=== PATIENT | female | born 1935 | race Caucasian/White ===

== ENCOUNTER 2020-06-10 10:00 | Outpatient (RCR) | payer MEDICARE, MEDICAID, SELFPAY | END 2020-06-11 10:00 | disposition home or self-care (01) | LOC: SPT 10:00 | PROVIDERS: PCP Family Medicine; Referring Provider Family Medicine; Visit Provider Family Medicine | DX: I89.0 Lymphedema, not elsewhere classified (principal) | CPT/HCPCS: 97161 ==

== ENCOUNTER 2020-06-15 12:19 | Outpatient (CLI) | payer MEDICARE, MEDICAID, SELFPAY ==
--- NOTE | 2020-06-16 09:43 | ONC CON_ITS ---
Dr. Keene New Patient Note Patient: Megan Myrick Unit #: [id number]: [id number] Dicatated By: Raymond Keene M.D.Date of Visit: Jun 15, 2020 Onc MED New Patient/Consult Referring Physician: Dr. Jose Naranjo M.D. Chief Complaint: Breast cancer. 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 She has multiple medical illnesses including hypertension, hyperlipidemia, coronary artery disease, rheumatoid arthritis, scoliosis, osteoporosis, GERD, obstructive sleep apnea, and chronic anemia. She has very poor mobility, and she is predominantly bed/wheelchair confined. However, she still lives independently. She had presented with a palpable lump in her left breast. Her diagnostic mammogram on 11/18/2019 showed an irregular mass at the 4 to 5 o'clock position of the left breast which measured 2.6 cm. Ultrasound showed a complex mass at the 4 o'clock position measuring 2.3 x 1.8 x 2.5 cm. The findings were BI-RADS 5, highly suspicious. There was no suspicious axillary adenopathy noted. She underwent core needle biopsy of the breast mass on 12/18/2019. Pathology showed grade 3 invasive ductal carcinoma. The breast prognostic profile showed ER negative at 0%, WV < 1%, and HER-2/mickey negative, 1+ by IHC. She then underwent left breast lumpectomy with axillary lymph node sampling on 01/30/2020. At that time she had a palpable axillary lymph node. Pathology on the lumpectomy again showed grade 3 invasive ductal carcinoma. It measured 1.8 cm in maximum diameter. There were 6 lymph nodes identified in the specimen, the largest measuring 2.5 cm. All 6 nodes showed benign pathology. Pathologic staging was T1c, N0. Her surgery was complicated by postoperative abscess, for which she required hospital admission on 02/06/2020. She underwent incision/drainage and placement of a wound VAC, and it eventually resolved. As yet she has not had any further treatment for the breast cancer. As noted, she has limited activity. She is able to perform ADLs, though slowly. She has very limited mobility, though she is able to ambulate short distances with a walker. She has good appetite. She has no fever, night sweats, or hot flashes. She says her breathing is okay. She has occasional nonproductive cough. She does not complain of chest pain. She has no GI complaints other than some constipation, though bowel function is adequate as long as she drinks enough liquid. She has urinary frequency and nocturia. She has some associated urgency. She sometimes has incontinence, mainly due to her limited mobility. She has joint pain, mainly in the hands and feet, and her back hurts whenever she gets up. She has had headaches, those are managed adequately with Tylenol. She intermittently has numbness in her hands. Past Medical History: Her medical history includes anemia, coronary artery disease, gastroesophageal reflux disease, hyperlipidemia, hypertension, hypothyroidism, obstructive sleep apnea, osteoporosis, rheumatoid arthritis, and scoliosis. Past Surgical History: She underwent core needle biopsy of the left breast 12/18/2019. She underwent left breast lumpectomy with axillary lymph node sampling on 01/30/2020. She underwent I & D of left breast abscess on 02/07/2020. Her other surgical/procedural history includes cataract excision, cholecystectomy, coronary angioplasty/stent placement, Duarte's procedure for perforated diverticulitis with subsequent reversal of the ostomy, right total hip arthroplasty, and right total knee arthroplasty. Medications: Calcium 3 Tablet (of 600 mg) Oral daily, Fish Oil 1 Capsule Oral daily, Glucosamine Sulfate 2 Capsule (of 1500 mg) Oral daily, Lisinopril 1 Tablet (of 40 mg) Oral daily, Lovastatin 1 Tablet (of 40 mg) Oral daily, Metoprolol Tartrate 1 Tablet (of 25 mg) Oral b.i.d., Multivitamin 1 Tablet Oral daily Allergies: No Known Allergies. Social History: Ms. Myrick is . She is a non-smoker. She does not drink alcohol. Family History: Father of heart attack at age 78. Mother in a motor vehicle accident at age 57. She has 3 brothers who have all been treated for prostate cancer. One sister is in good health. Review Of Symptoms: Constitutional - She has poor energy and she has very limited activity. She has good appetite. Her weight has been stable. She has no fever, night sweats, or hot flashes. ECOG score is 3, Eyes - Her vision is not good. She says she needs new glasses, ENMT - No hearing loss or tinnitus. No sinus congestion/drainage. No mouth sores. No sore throat or difficulty swallowing, Hematologic/Lymphatic - No abnormal bruising or bleeding, Respiratory - No shortness of breath. She has occasional nonproductive cough. No pleuritic pain or hemoptysis, Cardiovascular - No angina pain. No palpitations, Gastrointestinal - No nausea or vomiting. No heartburn or acid reflux. She has constipation. No blood in the stool or black stools, Genitourinary (F) - No dysuria or hematuria. She has urinary frequency and nocturia. She has some urgency/incontinence, in part due to her poor mobility, Musculoskeletal - She has joint pain, especially in her hands and feet, and she has back pain, Integumentary - No skin rash or other skin changes, Neurologic - She has headaches, adequately managed with Tylenol. No dizziness. She intermittent numbness in her fingers. No other focal neurologic symptoms, Psychiatric - No anxiety or depression. She sometimes has difficulty falling asleep. Vital Signs: Performed on Jun 15, 2020 14:14: 0, 31.35 (HIGH), 1.63 sq.m, 58.50 in, 97 %, 65 /min, 24 /min, 158/77 mm(hg) (HIGH), 97.0 F (LOW), and 152.6 lbs (HIGH). Physical Examination: Constitutional - She has poor mobility. She does not appear acutely ill, Eyes - Sclerae nonicteric. Conjunctivae clear, ENMT - No lesions noted in the oral cavity, Neck - No mass or thyromegaly, Hematologic/Lymphatic - No cervical or clavicular adenopathy, Respiratory - Lungs are clear with good air movement bilaterally, Cardiovascular - Heart rhythm is regular. There is no murmur, gallop, or rub noted, Breasts - There is induration at the lumpectomy site in the left breast. There are no breast masses noted. There is no axillary adenopathy, Abdomen - Moderately distended. There is a large abdominal wall hernia on the left side. Liver and spleen are not enlarged. There is no abdominal mass or ascites noted and there is no inguinal adenopathy, Back/Spine - No spine or CVA tenderness noted, Extremities - Moderately severe lower extremity edema. There is significant ulnar deviation, Integumentary - No rashes. No suspicious skin lesions noted, Neurologic - No focal neurologic deficits noted. Impression: 1. Patient with grade 3 infiltrating ductal carcinoma of the left breast, stage IIA (pT1c, pN0, M0), triple negative. 2. She underwent left breast lumpectomy with axillary lymph node sampling on 01/30/2020. The closest margin was 1 mm. 3. The procedure was complicated by postoperative abscess, which eventually resolved following I&D and placement of wound VAC. 4. She has strong family history of prostate cancer, raising the possibility of BRCA related malignancy. Her other medical illnesses include: 5. Hypertension. 6. Hyperlipidemia. 7. Coronary artery disease with previous angioplasty/stent placement. 8. GERD. 9. Hypothyroidism. 10. Obstructive sleep apnea. 11. Rheumatoid arthritis. 12. Scoliosis. 13. Osteoporosis. 14. Chronic anemia. Plan: The pathology findings were reviewed with the patient, and we discussed the clinical implications. She has a grade 3 invasive ductal carcinoma of the left breast which is triple negative. We discussed the fact that this is a high risk malignancy which has the potential to both recur locally and to spread to other areas. I think she definitely should undergo radiation, particularly with a 1 mm margin. Treatment may be problematic with her poor mobility, but she is encouraged to at least see the radiation oncologist, particularly if she has transportation available. She would like to do this in [place], and I will make those necessary arrangements. Unfortunately with triple negative disease the only option for systemic adjuvant therapy will be chemotherapy, and given the extent of her underlying medical illnesses and her poor performance status, I think the risks of toxicities will be very significant and will outweigh any potential benefit. She is not at all motivated to attempt chemotherapy, and I will plan to just monitor with observation/expectant management following completion of radiation. In the meantime, I will request a bedside commode for her, as she has impaired mobility and she is confined to one room without assistance of a wheel chair. Signed By: Raymond Keene M.D. <<Signature on File>>
== END 2020-06-15 12:20 | disposition home or self-care (01) ==
LOC: ONCMED 12:23
PROVIDERS: PCP Family Medicine; Visit Provider Internal Medicine Medical Oncology
DX: C50.512 Malignant neoplasm of lower-outer quadrant of left female breast (principal); Z17.1 Estrogen receptor negative status [ER-]; Z80.42 Family history of malignant neoplasm of prostate; I10 Essential (primary) hypertension; E78.5 Hyperlipidemia, unspecified; I25.10 Atherosclerotic heart disease of native coronary artery without angina pectoris; K21.9 Gastro-esophageal reflux disease without esophagitis; G47.33 Obstructive sleep apnea (adult) (pediatric); M06.9 Rheumatoid arthritis, unspecified; M41.9 Scoliosis, unspecified; M81.0 Age-related osteoporosis without current pathological fracture; D64.9 Anemia, unspecified; Z95.5 Presence of coronary angioplasty implant and graft; Z95.1 Presence of aortocoronary bypass graft
CPT/HCPCS: 99205

== ENCOUNTER 2022-06-28 11:17 | Outpatient (CLI) | payer MEDICARE, MEDICAID, SELFPAY ==
--- NOTE | 2022-06-28 11:39 | MM_ITS ---
WS: [id number] DIAGNOSTIC DIGITAL 2-D MAMMOGRAPHY WITH CAD. RIGHT breast, limited HISTORY: HX OF BREAST CA;RT BREAST MASS;PAIN SHANON BREASTS COMPARISON: The recent mammograms are not available for review and comparison. Most recent mammogram is 05/16/2022. Request made for the more current mammograms. Technique: CC, MLO and ML views. Spot compression RIGHT MLO. Breast composition: There are scattered areas of fibroglandular density. Volume loss in the LEFT jinny ast and postsurgical changes from prior lumpectomy. Limited evaluation. The pectoralis muscle is not included due to difficulty positioning the patient. Dystrophic calcifications in the lateral LEFT jinny ast. Benign bilateral vascular calcifications. Triangular markers are placed in the upper-outer quadr ant of the RIGHT breast. No underlying mass identified. This is the area of recent trauma. RIGHT breast ultrasound, limited. Ultrasound is directed to the palpable areas in the upper-outer quadrant of the RIGHT breast. No mass identified. MM/[place] [id number] IMPRESSION: BI-RADS: 2-Benign FOLLOW UP: 1 Year Follow-up 1. No abnormalities noted within the RIGHT breast in the region of the palpabl e abnormalities. 2. Postsurgical changes in the LEFT breast are identified. Patient has had halina mograms elsewhere and these will be requested for. When these mammograms become available an addendum will be submitted. Patient may need to return for additi onal imaging of the LEFT breast.
== END 2022-06-28 11:18 | disposition home or self-care (01) ==
LOC: RAD 11:18
PROVIDERS: PCP Family Medicine; Visit Provider Family Medicine
DX: Z85.3 Personal history of malignant neoplasm of breast (principal); N64.4 Mastodynia
CPT/HCPCS: 76642; 77066